=== PATIENT | female | born 1995 | race Caucasian/White ===

== ENCOUNTER 2017-07-27 14:10 | Emergency (ER) | payer MEDICAID ==
[~2017-07-27] VITALS: Ht 162.6 cm; Wt 54.4 kg
[2017-07-27 14:22] VITALS: BP 108/66
[2017-07-27] MEDS ORDERED: TDAP [DIPH/PERTUSSIS/TET] 0.5 ML VIAL IM ONE ×2 (14:30→15:01)
--- NOTE | 2017-07-27 15:12 | NUR ---
PT LEFT ED W/OUT GETTING THE TDAP. TRIED CALLING NUMBER IN HER CONTACT INFO. NOT WORKING. ERMD MADE AWARE.
== END 2017-07-27 15:28 | disposition home or self-care (01) ==
LOC: ER 14:19
DX: S01.132A Puncture wound without foreign body of left eyelid and periocular area, initial encounter (principal); W22.8XXA Striking against or struck by other objects, initial encounter; Y93.89 Activity, other specified; Y92.89 Other specified places as the place of occurrence of the external cause; Y99.9 Unspecified external cause status
CPT/HCPCS: 90715; A4606; Z7610